=== PATIENT | male | born 2000 | race Caucasian/White ===

== ENCOUNTER 2023-05-30 13:03 | Emergency (ER) | payer BC, OTHER, SELFPAY ==
[2023-05-30 13:16] VITALS: BP 111/70; PULSE 97; RESP 16; TEMP 37.9; O2SAT 99
--- NOTE | 2023-05-30 13:27 | ED.EXTPRO ---
HPI - Extremity Problem General Chief complaint: Extremity Problem,Nontraumatic Stated complaint: Right pointer finger Time Seen by Provider: 05/30/23 13:44 Source: patient and RN notes reviewed Mode of arrival: ambulatory Limitations: dementia History of Present Illness HPI Narrative: 23-year-old male presents concern for redness, swelling, tenderness to the distal 2nd digit of the right hand. He reports a few days ago it drained some clear fluid. Reports became more swollen today. Denies decreased strength, sensation, range of motion in the digit MD Complaint: extremity pain Related Data Allergies Allergy/AdvReac Type Severity Reaction Status Date / Time No Known Allergies Allergy Unverified 12/07/18 18:42 Review of Systems Review of Systems: CONSTITUTIONAL: Denies malaise, chills, sweats, or fever. SKIN: Reports redness, swelling, tenderness your the nail bed of the 2nd digit of the right hand, reports clear drainage. Denies purulent drainage, vesicles, bullae, numbness, pain beyond proportion MUSCULOSKELETAL: Denies joint pain or myalgia. NEUROLOGIC: Denies headache. All systems reviewed & are unremarkable except as noted in HPI and below PMFSH Comments At time of signature, agree with nursing past medical, surgical, social and family history. There is no relevant family history pertinent to the presenting complaint Exam Narrative: GENERAL: Well-appearing, well-nourished, and in no acute distress. HEAD: Normocephalic, atraumatic. EYES: PERRLA, conjunctivae clear ENT: Mucous membranes moist. NECK: Supple. No lymphadenopathy CHEST: Clear to auscultation. No respiratory distress. HEART: Regular rate and rhythm. SKIN: Warm, dry. Erythema, induration, tenderness, warmth with sharp margins noted proximal to the nail bed of the 2nd digit of the right hand, mildly fluctuant. No vesicles, bullae, necrosis, ecchymosis, crepitus noted. NEURO: Alert and oriented x3. PSYCH: Normal mood and affect Course Course Emergency Course: Patient is aware of diagnosis, understands and agrees to treatment plan. Anticipatory guidance given. Patient agrees to follow-up as directed and is aware of reasons to seek care at the emergency department. Portions of this record may have been created with voice recognition software Level of Care: Express Care Visit Vital Signs Vital signs: Vital Signs Temperature 100.2 F H 05/30/23 13:16 Pulse Rate 97 05/30/23 13:16 Respiratory Rate 16 05/30/23 13:16 Blood Pressure 111/70 05/30/23 13:16 Pulse Oximetry 99 05/30/23 13:16 Oxygen Delivery Room Air 05/30/23 13:16 Temperature 100.2 F H 05/30/23 13:16 Pulse Rate 97 05/30/23 13:16 Respiratory Rate 16 05/30/23 13:16 Blood Pressure 111/70 05/30/23 13:16 Pulse Oximetry 99 05/30/23 13:16 Oxygen Delivery Room Air 05/30/23 13:16 Reviewed. Procedures Abscess I/D hand: Date of Incision: 05/30/23 Time of Incision: 13:46 Side (if applicable): right Technique: needle aspiration Amount of fluid expressed (mL): 0 Irrigation: No Packing used?: none I&D Results: Nothing MDM - Extremity (Nontraumatic) MDM Narrative Medical decision making narrative: Exam findings show no acute concerns or changes; patient is non-toxic appearing and is in no distress. Patient is appropriate for outpatient treatment and follow-up. Critical Care Time Critical Care Time Critical Care Time: No Discharge Plan Discharge Clinical Impression: Paronychia Patient Disposition: Home, Self-Care Condition: Stable Instructions: Antibiotic Form, Paronychia (ED) Additional Instructions: Soak your nail: Soak your nail in a mixture of equal parts vinegar and water 3 or 4 times each day. This will help decrease inflammation. Apply a warm compress: Soak a washcloth in warm water and place it on your nail. This will help decrease inflammation. Elevate: Raise your na
--- NOTE | 2023-05-30 13:58 | PC.NURSE ---
Wound cleansed with betadine, I and D was attempted. Covered with bandaide at end of procedure. Completed by MEDIA CONSULTANT
== END 2023-05-30 14:01 | disposition home or self-care (01) ==
PROVIDERS: Emergency Provider Nurse Practitioner
DX: L03.011 Cellulitis of right finger (principal)
CPT/HCPCS: 10160; 99203; G0463

== ENCOUNTER 2023-09-15 13:30 | Emergency (ER) | payer BC, OTHER, SELFPAY ==
--- NOTE | ~2023-09-15 | XR_ITS ---
EXAMINATION: XR ankle LT min 3V DATE: 09/15/2023 14:01 INDICATION: Posttraumatic lateral left ankle pain TECHNIQUE: Anteroposterior, oblique, mortise, and lateral views of the left ankle were obtained. COMPARISON: None. FINDINGS: Bone alignment is normal. No fracture. Joint spaces are normal. Soft tissue swelling about the latera l malleolus. No ankle joint effusion. IMPRESSION: 1. No left ankle joint effusion or osseous abnormality. Reviewed, dictated and finalized at location A.
[2023-09-15 13:36] VITALS: BP 134/70; PULSE 99; RESP 20; TEMP 36.9; O2SAT 100
--- NOTE | 2023-09-15 13:53 | ED.LOWEXIN ---
HPI - Extremity Injury (Lower) General Chief Complaint: Extremity Injury, Lower Stated Complaint: left ankle injury Time Seen by Provider: 09/15/23 13:45 Source: patient and RN notes reviewed Mode of arrival: ambulatory Limitations: no limitations History of Present Illness HPI Narrative: Patient presents today stating he twisted his left ankle last night while playing with family member at home. Denies numbness or tingling. He is currently pain-free, which increases to 5/10 with weight-bearing. Has applied ice and taking naproxen without much relief. Related Data Home Medications Medication Instructions Recorded Confirmed No Home Medications 09/15/23 09/15/23 Allergies Allergy/AdvReac Type Severity Reaction Status Date / Time No Known Allergies Allergy Unverified 09/15/23 13:47 Review of Systems Review of Systems: CONSTITUTIONAL: Denies body aches, fever, chills, or sweats. EYES: Denies visual changes, redness, or discharge. ENT: Denies rhinorrhea, congestion, sore throat, or otalgia. CARDIOVASCULAR: Denies chest pain, palpitations, or edema. RESPIRATORY: Denies cough or dyspnea. GASTROINTESTINAL: Denies abdominal pain, nausea, vomiting, or diarrhea. GENITOURINARY: Denies dysuria or hematuria. SKIN: Denies rash, itching, or wounds. MUSCULOSKELETAL: Denies back pain, or myalgia.+ left ankle injury NEUROLOGIC: Denies headache, numbness, tingling, or weakness. PSYCH: Denies depression or anxiety. PMFSH Comments At time of signature, I have reviewed and agree with nursing past medical, surgical, social and family history unless otherwise noted. Please see nursing chart for further information. There is no relevant family history pertinent to the presenting complaint Exam Narrative: GENERAL: Well-appearing, well-nourished, and in no acute distress. HEAD: Normocephalic, atraumatic. EYES: EOMI. No redness or drainage. Conjunctivae normal. ENT: Mucous membranes pink and moist. NECK: Normal AROM. CHEST: No respiratory distress. EXTREMITIES: Left ankle: Tenderness and mild to moderate localized edema to the lateral ankle. No tenderness medially, anteriorly, or posteriorly. Distal sensation intact. Capillary refill normal. Pedal pulse normal. Full range of motion of the ankle with mild increased pain laterally. SKIN: Warm, dry, no rash. Capillary refill normal. Normal skin turgor. NEURO: No focal deficits. Alert and oriented x3. Gait steady. PSYCH: Normal affect. No signs of depression or anxiety. Course Course Level of Care: Express Care Visit Vital Signs Vital signs: Vital Signs Temperature 98.4 F 09/15/23 13:36 Pulse Rate 99 09/15/23 13:36 Respiratory Rate 20 09/15/23 13:36 Blood Pressure 134/70 09/15/23 13:36 Pulse Oximetry 100 09/15/23 13:36 Oxygen Delivery Room Air 09/15/23 13:36 Temperature 98.4 F 09/15/23 13:36 Pulse Rate 99 09/15/23 13:36 Respiratory Rate 20 09/15/23 13:36 Blood Pressure 134/70 09/15/23 13:36 Pulse Oximetry 100 09/15/23 13:36 Oxygen Delivery Room Air 09/15/23 13:36 Reviewed MDM - Extremity Injury (Lower) Differential Diagnosis Differential diagnosis: Likely ankle sprain and strain and ankle fracture Imaging Data Radiologist's impression: ITS Impressions Ankle X-Ray 09/15/23 14:05 IMPRESSION: 1. No left ankle joint effusion or osseous abnormality. Critical Care Time Critical Care Time Critical Care Time: No Discharge Plan Discharge Clinical Impression: Left ankle sprain Qualifiers: Encounter type: initial encounter Involved ligament of ankle: unspecified ligament Qualified Code(s): S93.402A - Sprain of unspecified ligament of left ankle, initial encounter Patient Disposition: Home, Self-Care Condition: Stable Instructions: Ankle Sprain (DC) Additional Instructions: Your x-rays negative for fracture. Wear the Lm wrap for comfort and stability. Elevate and ice
== END 2023-09-15 14:20 | disposition home or self-care (01) ==
PROVIDERS: Emergency Provider Nurse Practitioner
DX: S93.402A Sprain of unspecified ligament of left ankle, initial encounter (principal); X50.9XXA Other and unspecified overexertion or strenuous movements or postures, initial encounter
CPT/HCPCS: 73610; 99213; G0463

== ENCOUNTER 2024-04-13 14:53 | Emergency (ER) | payer BC, SELFPAY ==
[2024-04-13 15:00] VITALS: BP 112/64; PULSE 87; RESP 20; TEMP 36.5; O2SAT 100
[2024-04-13 20:10] LABS: Trichomonas Vag PCR NOT DETECTED (NOT DETECTE)
[2024-04-13 20:34] LABS: Chlamydia trachomatis NOT DETECTED (NOT DETECTE); Neisseria gonorrhoeae PCR NOT DETECTED (NOT DETECTE)
--- NOTE | 2024-04-13 21:39 | ED.GENADULT ---
HPI - General Adult General Chief complaint: Urogenital-Male Stated complaint: std test Time Seen by Provider: 04/13/24 15:04 Source: patient, RN notes reviewed and old records reviewed Mode of arrival: ambulatory Limitations: no limitations History of Present Illness HPI narrative: 24-year-old male to Express Care requesting STI testing. Patient states that his girlfriend suggested that he be tested. patient states he was seen and tested 2 weeks ago at [facility] Emergency Department and test again last Friday. All were negative results. Patient denies any symptoms or concerns at this time. Patient resting comfortably in exam room. Related Data Home Medications Medication Instructions Recorded Confirmed No Home Medications 09/15/23 04/13/24 Allergies Allergy/AdvReac Type Severity Reaction Status Date / Time No Known Allergies Allergy Verified 04/13/24 15:31 Review of Systems Review of Systems: All systems reviewed & are unremarkable except as noted in HPI and below Constitutional: Constitutional: Reports no additional constitutional complaints Eyes: Eyes: Reports no additional eye complaints ENT: Reports system reviewed and no additional complaints, except as documented Cardiovascular: Cardiovascular: Reports no additional cardiovascular complaints, Denies chest pain and Denies dyspnea Respiratory: Respiratory: Reports no additional respiratory complaints, Denies cough and Denies dyspnea Musculoskeletal: Musculoskeletal: Reports no additional musculoskeletal complaints Neurologic: Reports system reviewed and no additional complaints, except as documented Psychiatric: Psychiatric: Reports no additional psychiatric complaints PMFSH Comments At the time of my signature, I reviewed and agree with the nursing past medical, surgical, social, and family history. There is no relevant family history pertinent to the patient complaint. Exam Const: General: cooperative, healthy appearing, comfortable, no acute distress, alert and well nourished Nutritional Appearance: well nourished Orientation/consciousness: patient oriented x3 Limitations: no limitations HENMT: Head: normal to inspection Ears: external ears normal Face/Nose/Sinus: Normal external nose present, Normal nares present, normal facial exam, No erythema and No edema Face and sinus: normal facial exam, no erythema and no edema Mouth: Yes Normal oral and palatal mucosa present Eyes: General: appearance normal, both eyes and all related structures Neck: Neck: normal visual inspection, full ROM and no meningeal signs Chest: Chest palpation & inspection: normal inspection of the chest Resp: Effort & Inspection: normal respiratory effort and able to speak in complete sentences Cardio: Jugular venous distension: no JVD Rate: regular rate Back/Spine/Pelvis: Cervical Spine: cervical ROM normal Skin: General skin exam: normal color, no rashes or lesions noted and turgor normal Neuro: General: patient oriented x3, gait normal, moves all extremities and no meningeal signs Speech: normal speech Gait exam (Neuro): Normal gait present Extrem: General: normal to inspection, full ROM and capillary refill normal Psych: Appearance: grossly normal and well kempt Course Course Emergency Course: Some parts of this dictation were generated by voice recognition software and may contain typographical and/or grammatical inaccuracies. Level of Care: Express Care Visit Vital Signs Vital signs: Vital Signs Temperature 36.5 C 04/13/24 15:00 Pulse Rate 87 04/13/24 15:00 Respiratory Rate 20 04/13/24 15:00 Blood Pressure 112/64 04/13/24 15:00 Pulse Oximetry 100 04/13/24 15:00 Oxygen Delivery Room Air 04/13/24 15:00 Temperature 36.5 C 04/13/24 15:00 Pulse Rate 87 04/13/24 15:00 Respiratory Rate 20 04/13/24 15:00 Blood Pressure 112/64 04/13/24 15:00 Pulse Oximetry 100 04/13/24 15:00 Oxygen Delivery Room Air 04/13/24 15:00 reviewed Medical Decision Making MDM Narrative Medical decision making narrative: 24-year-old male to Express Care requesting STI testing. Patient states that his girlfriend suggested that he be tested. patient states he was seen and tested 2 weeks ago at [facility] Emergency Department and test again last Friday. All were negative results. Patient denies any symptoms or concerns at this time. Patient resting comfortably in exam room. Patient is sitting comfortably in exam room nontoxic in appearance. Patient exam unremarkable. Patient appropriate for outpatient treatment and follow-up. Discharge instructions reviewed with patient, as well as provided in writing per nursing staff. The instructions also include specific and strict return/GO TO THE ER as well as f/u information. All questions have been answered, and the patient deny any further questions with discharge and discharge plan. Some parts of this dictation were generated by voice recognition software and may contain typographical and/or grammatical inaccuracies. Vital Signs Vital Signs: Vital Signs Temperature 36.5 C 04/13/24 15:00 Pulse Rate 87 04/13/24 15:00 Respiratory Rate 20 04/13/24 15:00 Blood Pressure 112/64 04/13/24 15:00 Pulse Oximetry 100 04/13/24 15:00 Oxygen Delivery Room Air 04/13/24 15:00 Temperature 36.5 C 04/13/24 15:00 Pulse Rate 87 04/13/24 15:00 Respiratory Rate 20 04/13/24 15:00 Blood Pressure 112/64 04/13/24 15:00 Pulse Oximetry 100 04/13/24 15:00 Oxygen Delivery Room Air 04/13/24 15:00 Lab Data Labs: Lab Results 04/13/24 Range/Units 15:12 C. trachomatis (PCR) Not detected (NOT DETECTE) N. gonorrhoeae (PCR) Not detected (NOT DETECTE) T. vaginalis (PCR) Not detected (NOT DETECTE) Discharge Plan Discharge Clinical Impression: Possible exposure to STI Patient Disposition: Home, Self-Care Condition: Stable Instructions: Safe Sex Practices (ED) Prescriptions: No Action No Home Medications Follow-up/Referrals: PHYSICIAN,BUILDING CONSULTANT [Primary Care Provider] -
== END 2024-04-13 15:50 | disposition home or self-care (01) ==
PROVIDERS: Emergency Provider Nurse Practitioner Family
DX: Z11.3 Encounter for screening for infections with a predominantly sexual mode of transmission (principal)
CPT/HCPCS: 87491; 87591; 87661; 99213; G0463